=== PATIENT | male | born 1970 | race Caucasian/White ===

== ENCOUNTER 2022-02-23 11:14 | Observation (INO) ==
[2022-02-23] MEDS ORDERED: Lactated Ringers 1000 ml BAG 1,000 ML IV ONE ×2 (15:41→18:34)
[2022-02-23] MEDS ORDERED: Ondansetron 4 mg VIAL 2 MG/ML 2 ml VIAL IV ONE (15:41)
[2022-02-23 16:27] LABS: ABS Lymphocytes 1.6 10^3/ul (1.0-4.8); ABS Monocytes 0.7 10^3/ul (0-0.8); ABS Neutrophils 7.2 10^3/ul (1.5-7.7); Eosinophil % 0.1 %; Hematocrit 46 % (42-52); Hemoglobin 15.7 g/dL (14.0-18.0); Lymphocyte % 16.8 %; Mean Corpuscular HGB Conc 34 g/dL (31-36); Mean Corpuscular Hemoglobin 32 pg (27-31); Mean Corpuscular Volume 94 fL (80-94); Mean Platelet Volume 7.5 fL (7.4-10.4); Platelet Count 211 10^3/uL (150-450); Red Blood Count 4.94 10^6 /uL (4.18-5.48); Red Cell Distribution Width 13 % (10-15); White Blood Count 9.5 10^3/uL (3.5-10.8)
[2022-02-23 17:17] LABS: C Reactive Protein 3.47 mg/L (<8.01); Magnesium 2.1 mg/dL (1.9-2.7)
[2022-02-23 17:17] LABS: Albumin 4.6 g/dL (3.2-5.2); Albumin/Globulin Ratio 2.7 (1-3); Calcium 9.3 mg/dL (8.6-10.3); Globulin 1.7 g/dL (2-4); Potassium 3.8 mmol/L (3.5-5.0); Total Bilirubin 1.8 mg/dL (0.2-1.0); Total Protein 6.3 g/dL (6.4-8.9); eGFR CKD-EPI 102.7 (>60)
[2022-02-23] MEDS ORDERED: Iohexol 350 (CONTRAST) 500 ML MDV IV ONE (17:23)
[2022-02-23] MEDS: Enoxaparin 40 MG/0.4 ML SYR SUBCUT SCH (21:02)
[2022-02-23] MEDS: Acetaminophen IV 1 GM/100ML 1,000 MG/100 ML BAG IV PRN (21:06)
[2022-02-23] MEDS: Ondansetron 4 mg VIAL 2 MG/ML 2 ml VIAL IV PRN (21:06)
[2022-02-23] MEDS: Lactated Ringers 1000 ml BAG 1,000 ML IV SCH (21:07)
[2022-02-24 04:47] LABS: ABS Eosinophils 0.1 10^3/ul (0-0.6); ABS Lymphocytes 2.1 10^3/ul (1.0-4.8); ABS Monocytes 0.5 10^3/ul (0-0.8); ABS Neutrophils 3.5 10^3/ul (1.5-7.7); Eosinophil % 1.2 %; Hematocrit 39 % (42-52); Hemoglobin 13.8 g/dL (14.0-18.0); Lymphocyte % 33.3 %; Mean Corpuscular HGB Conc 35 g/dL (31-36); Mean Corpuscular Hemoglobin 33 pg (27-31); Mean Corpuscular Volume 93 fL (80-94); Mean Platelet Volume 7.7 fL (7.4-10.4); Platelet Count 167 10^3/uL (150-450); Red Blood Count 4.21 10^6 /uL (4.18-5.48); Red Cell Distribution Width 12 % (10-15); White Blood Count 6.2 10^3/uL (3.5-10.8)
[2022-02-24 05:31] LABS: Calcium 8.4 mg/dL (8.6-10.3); Magnesium 1.9 mg/dL (1.9-2.7); Potassium 4.1 mmol/L (3.5-5.0); eGFR CKD-EPI 91.7 (>60)
[2022-02-24] MEDS: Lactated Ringers 1000 ml BAG 1,000 ML IV SCH ×3 (05:45→21:24)
[2022-02-24] MEDS: Acetaminophen IV 1 GM/100ML 1,000 MG/100 ML BAG IV PRN (14:11)
[2022-02-24] MEDS: Enoxaparin 40 MG/0.4 ML SYR SUBCUT SCH (21:19)
[2022-02-25] MEDS: Lactated Ringers 1000 ml BAG 1,000 ML IV SCH ×3 (06:17→21:47)
[2022-02-25 06:59] LABS: ABS Eosinophils 0.1 10^3/ul (0-0.6); ABS Lymphocytes 1.3 10^3/ul (1.0-4.8); ABS Monocytes 0.3 10^3/ul (0-0.8); ABS Neutrophils 1.9 10^3/ul (1.5-7.7); Hematocrit 38 % (42-52); Hemoglobin 13.2 g/dL (14.0-18.0); Lymphocyte % 36.7 %; Mean Corpuscular HGB Conc 35 g/dL (31-36); Mean Corpuscular Hemoglobin 33 pg (27-31); Mean Corpuscular Volume 93 fL (80-94); Platelet Count 162 10^3/uL (150-450); Red Blood Count 4.03 10^6 /uL (4.18-5.48); Red Cell Distribution Width 12 % (10-15); White Blood Count 3.6 10^3/uL (3.5-10.8)
[2022-02-25 07:15] LABS: Calcium 8.4 mg/dL (8.6-10.3); Potassium 3.6 mmol/L (3.5-5.0); eGFR CKD-EPI 108.6 (>60)
[2022-02-25] MEDS: Ondansetron 4 mg VIAL 2 MG/ML 2 ml VIAL IV PRN (07:40)
[2022-02-25] MEDS ORDERED: Acetaminophen IV 1 GM/100ML 1,000 MG/100 ML BAG IV PRN (10:40)
[2022-02-25] MEDS ORDERED: Lactated Ringers 1000 ml BAG 1,000 ML IV SCH (11:00)
[2022-02-25] MEDS ORDERED: Diatrizoate Meg/Sod(CONTRAST) 30 ML ORAL.SOLN PO ONE (11:02)
[2022-02-25] MEDS: Enoxaparin 40 MG/0.4 ML SYR SUBCUT SCH (21:48)
[2022-02-26] MEDS: Lactated Ringers 1000 ml BAG 1,000 ML IV SCH (05:46)
[2022-02-26 05:51] LABS: ABS Eosinophils 0.1 10^3/ul (0-0.6); ABS Lymphocytes 1.4 10^3/ul (1.0-4.8); ABS Monocytes 0.3 10^3/ul (0-0.8); ABS Neutrophils 2.2 10^3/ul (1.5-7.7); Eosinophil % 2.4 %; Hematocrit 38 % (42-52); Hemoglobin 13.3 g/dL (14.0-18.0); Lymphocyte % 34.5 %; Mean Corpuscular HGB Conc 35 g/dL (31-36); Mean Corpuscular Hemoglobin 33 pg (27-31); Mean Corpuscular Volume 93 fL (80-94); Platelet Count 159 10^3/uL (150-450); Red Blood Count 4.08 10^6 /uL (4.18-5.48); Red Cell Distribution Width 12 % (10-15); White Blood Count 4.1 10^3/uL (3.5-10.8)
[2022-02-26 06:21] LABS: Albumin 3.8 g/dL (3.2-5.2); Albumin/Globulin Ratio 2.5 (1-3); Calcium 8.5 mg/dL (8.6-10.3); Globulin 1.5 g/dL (2-4); Magnesium 1.8 mg/dL (1.9-2.7); Potassium 3.6 mmol/L (3.5-5.0); Total Bilirubin 1.1 mg/dL (0.2-1.0); Total Protein 5.3 g/dL (6.4-8.9); eGFR CKD-EPI 111.8 (>60)
[2022-02-26] MEDS ORDERED: Magnesium Sulfate IV 3 GM in NS 0.9% 100 ml BAG 100 ML IVPB ONE (09:18)
[2022-02-26 11:18] VITALS: BP 158/89
== END 2022-02-26 16:05 | disposition home or self-care (01) ==
LOC: EDHOLD 11:14 → ED 11:14 → SUATTDRO 18:50 → SSU 02-24 05:14
PROVIDERS: ADMIT Student in an Organized Health Care Education/Training Program; ATTEND Family Medicine